=== PATIENT | male | born 1945 | race Two or more races ===

== ENCOUNTER 2017-12-31 10:04 | Day surgery (SDC) | payer OTHER ==
[2017-12-31] MEDS ORDERED: TETRACAINE 0.5% OPHTH 1 DOSE AFFEYE ONE ×2 (10:15→12:51)
[2017-12-31] MEDS ORDERED: VIGAMOX 0.5% OPHTH 1 DOSE AFFEYE ONE ×5 (10:20→13:38)
[2017-12-31] MEDS ORDERED: NS 500 ML IV 500 ML IV ONE (10:29)
[2017-12-31] MEDS ORDERED: PROLENSA OPHTH 1 DOSE AFFEYE ONE (10:32)
[2017-12-31] MEDS ORDERED: ALPHAGAN-P OPHTH 1 DOSE AFFEYE ONE (10:33)
[2017-12-31] MEDS ORDERED: CYCLOGYL 1% OPHTH 1 DOSE OP ONE ×3 (10:34→10:36)
[2017-12-31] MEDS ORDERED: MYDRIACIL OPHTH 1 DOSE AFFEYE ONE ×3 (10:34→10:36)
[2017-12-31] MEDS ORDERED: AK-DILATE 2.5% OPHTH 1 DOSE OP ONE ×3 (10:34→10:36)
[2017-12-31] MEDS ORDERED: KENALOG INJ 40 MG IM ONE ×3 (12:47→13:38)
[2017-12-31] MEDS ORDERED: BSS OPHTH (PLAIN) 500 ML with VANCOMYCIN HCL 500 MG VIAL 25 MG, ADRENALINE CHL INJ 1 MG IR ONE ×3 (12:50)
[2017-12-31] MEDS ORDERED: BETADINE OPHTH SOLN 5% EACHEYE ONE (12:51)
[2017-12-31] MEDS ORDERED: XYLOCAINE-MPF 1% IJ ONE (12:55)
[2017-12-31] MEDS ORDERED: DUOVISC IO ONE (12:55)
[2017-12-31] MEDS ORDERED: ADRENALINE CHL INJ IJ ONE (12:55)
[2017-12-31 15:02] VITALS: BP 158/84
== END 2017-12-31 14:05 | disposition home or self-care (01) ==
LOC: SURG1 10:04
PROVIDERS: ATTEND Ophthalmology
PROC: 08DK3ZZ Extraction of Left Lens, Percutaneous Approach (ICD-10-PCS; principal; 2017-12-31 14:45)
PROC: 08RK3JZ Replacement of Left Lens with Synthetic Substitute, Percutaneous Approach (ICD-10-PCS; principal; 2017-12-31 14:45)
PROC: 08BTXZX Excision of Left Conjunctiva, External Approach, Diagnostic (ICD-10-PCS; principal; 2017-12-31 14:45)
DX: H25.12 Age-related nuclear cataract, left eye (principal); H11.052 Peripheral pterygium, progressive, left eye
CPT/HCPCS: 99100; A4217; J0170; J3301; J3370

== ENCOUNTER 2018-01-21 07:16 | Day surgery (SDC) | payer OTHER ==
[2018-01-21] MEDS ORDERED: TETRACAINE 0.5% OPHTH 1 DOSE AFFEYE ONE ×4 (07:33→12:04)
[2018-01-21] MEDS ORDERED: VIGAMOX 0.5% OPHTH 1 DOSE AFFEYE ONE ×5 (07:35→12:18)
[2018-01-21] MEDS ORDERED: NS 500 ML IV 500 ML IV ONE (07:36)
[2018-01-21] MEDS ORDERED: PROLENSA OPHTH 1 DOSE AFFEYE ONE (07:46)
[2018-01-21] MEDS ORDERED: ALPHAGAN-P OPHTH 1 DOSE AFFEYE ONE (07:48)
[2018-01-21] MEDS ORDERED: AK-DILATE 2.5% OPHTH 1 DOSE OP ONE ×3 (07:50→07:54)
[2018-01-21] MEDS ORDERED: MYDRIACIL OPHTH 1 DOSE AFFEYE ONE ×3 (07:50→07:54)
[2018-01-21] MEDS ORDERED: CYCLOGYL 1% OPHTH 1 DOSE OP ONE ×3 (07:50→07:54)
[2018-01-21] MEDS ORDERED: DIPRIVAN VIAL ONE (09:25)
[2018-01-21] MEDS ORDERED: BETADINE OPHTH SOLN 5% EACHEYE ONE (11:46)
[2018-01-21] MEDS ORDERED: XYLOCAINE-MPF 1% IJ ONE ×2 (11:47→12:04)
[2018-01-21] MEDS ORDERED: ADRENALINE CHL INJ IJ ONE ×2 (11:47→12:04)
[2018-01-21] MEDS ORDERED: KENALOG INJ 40 MG IM ONE ×3 (11:47→12:17)
[2018-01-21] MEDS ORDERED: DUOVISC IO ONE ×2 (11:47→12:04)
[2018-01-21] MEDS ORDERED: BSS OPHTH (PLAIN) 500 ML with VANCOMYCIN HCL 500 MG VIAL 25 MG, ADRENALINE CHL INJ 1 MG IR ONE ×3 (11:48)
[2018-01-21 15:49] VITALS: BP 141/69
== END 2018-01-21 12:40 | disposition home or self-care (01) ==
LOC: SURG1 07:16
PROVIDERS: ATTEND Ophthalmology
PROC: 08DJ3ZZ Extraction of Right Lens, Percutaneous Approach (ICD-10-PCS; principal; 2018-01-21 20:15)
PROC: 08BSXZX Excision of Right Conjunctiva, External Approach, Diagnostic (ICD-10-PCS; principal; 2018-01-21 20:15)
PROC: 08U007Z Supplement of Right Eye with Autologous Tissue Substitute, Open Approach (ICD-10-PCS; principal; 2018-01-21 20:15)
PROC: 08RJ3JZ Replacement of Right Lens with Synthetic Substitute, Percutaneous Approach (ICD-10-PCS; principal; 2018-01-21 20:15)
DX: H25.11 Age-related nuclear cataract, right eye (principal); H11.051 Peripheral pterygium, progressive, right eye; H52.221 Regular astigmatism, right eye
CPT/HCPCS: 99100; A9270; A4217; J0170; J3301; J3370; J3490